=== PATIENT | female | born 1985 | race Caucasian/White ===

== ENCOUNTER 2021-09-28 12:29 | Emergency (ER) | payer MEDICAID ==
[~2021-09-28] VITALS: Ht 157.5 cm; Wt 117.9 kg
--- NOTE | 2021-09-28 12:38 | NUR ---
DR. CARDENAS BEDSIDE EVALUATING PATIENT
[2021-09-28 12:51] VITALS: BP 179/100
--- NOTE | 2021-09-28 12:52 | NUR ---
1248 CODE STROKE INITIATED
--- NOTE | 2021-09-28 12:54 | NUR ---
PATIENT TRANSPORTED TO CT [facility]IA [facility]
--- NOTE | 2021-09-28 12:55 | NUR ---
36 y/o F BIB self from home c/o acute onset of headache 35 minutes prior to arrival. Patient A&Ox4, ambulatory, states symptoms began while at work. Pt also reports 3 episodes of vomiting. Last seen normal 1220PM. Pt reports hx of migraine headaches and states symptoms feel similar. Pt reports blurry vision and slow to respond. Denies chest pain, syncope, dizziness, SOB, falls. Bed locked in lowest position, side rails x 1. PMH/Sx/Meds: lupus, trigeminal neuralgia NKDA
--- NOTE | 2021-09-28 12:56 | NUR ---
Blood sample collected, walked to lab, handed to CPT. Alka
--- NOTE | 2021-09-28 12:59 | NUR ---
NIHSS 5: LOC: +1 Arouses to minor stim Visual drummond: +1 partial hemianopia Left arm motor drift: +1 Left leg motor drift + 1 Limb ataxia: +1
--- NOTE | 2021-09-28 13:02 | NUR ---
TELENEURO CONSULT INITIATED CONNECT ID [id number]
--- NOTE | 2021-09-28 13:03 | NUR ---
Collin nieves in [facility] - 09/28/21 at 1304 by ROMELIA 1302 KAILEY CONSULT INITIATED CONNECT ID [id number]
--- NOTE | 2021-09-28 13:03 | NUR ---
PT TAKEN TO ER BED 5 VIA [facility].
--- NOTE | 2021-09-28 13:05 | NUR ---
Connected to Teleneurologist at this time.
--- NOTE | 2021-09-28 13:14 | NUR ---
CT consent form signed
[2021-09-28] MEDS ORDERED: diphenhydrAMINE 50 MG/ML VIAL IVP ONE (13:15)
[2021-09-28] MEDS ORDERED: PROCHLORPERAZINE 10 MG/2 ML VIAL IVP ONE (13:15)
[2021-09-28] MEDS ORDERED: NACL 0.9% 1,000 ML IV ONE (13:20)
--- NOTE | 2021-09-28 13:23 | NUR ---
Contacted Will advised pt ready pending blood work
--- NOTE | 2021-09-28 13:36 | NUR ---
ZEENAT ortega swab collected, walked to lab and handed to CPT. Alka
[2021-09-28 13:52] LABS: ALBUMIN 3.7 g/dL (3.4-5.0); ANION GAP 14.2 (8-16); CARBON DIOXIDE 27.5 mmol/L (21-32); CREATININE 0.8 mg/dL (0.6-1.3); POTASSIUM 3.7 mmol/L (3.5-5.1); TOTAL BILIRUBIN 0.4 mg/dL (0.0-1.0)
--- NOTE | 2021-09-28 13:56 | NUR ---
ua done hcg neg, pt sent to ct via w/c
--- NOTE | 2021-09-28 14:20 | NUR ---
pt back from ct, c/o headache er md Dr. Anne notifted.
[2021-09-28] MEDS ORDERED: KETOROLAC 15 MG/ML VIAL IVP ONE (15:00)
--- NOTE | 2021-09-28 15:11 | NUR ---
ivp pain meds given-nadr at this time
--- NOTE | 2021-09-28 15:21 | NUR ---
Pt removed IV by accident; Dr. Anne made aware; no new orders for IV insertion at this time.
[2021-09-28 15:39] LABS: BASOPHILS # (AUTO) 0.1 K/uL (0.00-0.22); BASOPHILS % (AUTO) 2.3 % (0.0-2.0); EOSINOPHILS # (AUTO) 0.1 K/uL (0-0.4); EOSINOPHILS % (AUTO) 2.6 % (0.0-4.0); HEMATOCRIT 42.6 % (36-48); HEMOGLOBIN 14.4 g/dL (12.0-16.0); LYMPHOCYTES # (AUTO) 1.1 K/uL (2.5-16.5); LYMPHOCYTES % (AUTO) 19.6 % (20.5-51.1); MEAN CORPUSCULAR HEMOGLOBIN 31 pg (27-31); MEAN CORPUSCULAR HGB CONC 34 g/dL (33-37); MEAN CORPUSCULAR VOLUME 92.2 fL (80-94); MONOCYTES # (AUTO) 0.3 K/uL (0.8-1.0); MONOCYTES % (AUTO) 6.3 % (1.7-9.3); NEUTROPHILS # (AUTO) 3.8 K/uL (1.8-7.7); NEUTROPHILS % (AUTO) 69.2 % (42.2-75.2); PLATELET COUNT (AUTO) 260 K/uL (140-450); RED BLOOD CELL COUNT(AUTO) 4.62 MIL/uL (4.20-5.40); RED CELL DISTRIBUTION WIDTH 13.9 % (11.6-13.7); WHITE BLOOD COUNT (AUTO) 5.5 K/uL (4.8-10.8)
[2021-09-28 15:42] LABS: APPEARANCE,URINE HAZY (CLEAR); BILIRUBIN,URINE 1+ (NEGATIVE); BLOOD, URINE 3+ (NEGATIVE); COLOR,URINE YELLOW (YELLOW); LEUKOCYTE ESTERASE ,URINE 1+ (NEGATIVE); NITRITE, URINE NEGATIVE (NEGATIVE); UGLUCOSE NEGATIVE (NEGATIVE)
[2021-09-28 16:25] LABS: CALCIUM OXALATE CRYSTALS,UR None Seen /HPF (None Seen); COARSE GRANULAR CASTS,URINE None Seen /LPF (None Seen); FINE GRANULAR CASTS,URINE None Seen /LPF (None Seen); HYALINE CASTS, URINE 0-10 /LPF (None Seen); OTHER CASTS, URINE None Seen /LPF (None Seen); OTHER CRYSTALS,URINE None Seen /HPF (None Seen); RED BLOOD CELL CASTS,URINE None Seen /LPF (None Seen); TRICHOMONAS,URINE None Seen /HPF (None Seen); TRIPLE PHOSPHATE CRYSTAL,UR None Seen /HPF (None Seen); URIC ACID CRYSTALS,URINE None Seen /HPF (None Seen); URINE AMORPHOUS URATE None Seen /HPF (None Seen); WAXY CASTS,URINE None Seen /LPF (None Seen); YEAST,URINE None Seen /HPF (None Seen)
--- NOTE | 2021-09-28 16:30 | NUR ---
Dr. Anne is reevaluating pt at bedside
[2021-09-28] MEDS ORDERED: SULF-59 PO (16:41)
--- NOTE | 2021-09-28 16:43 | NUR ---
BP 158/107; Dr. Anne made aware.
[2021-09-28 16:44] VITALS: BP 158/107
--- NOTE | 2021-09-28 16:50 | NUR ---
Patient discharged with v/s stable. Written and verbal after care instructions given and explained. Patient alert, oriented and verbalized understanding of instructions. Ambulatory with steady gait. All questions addressed prior to discharge. ID band removed. Patient advised to follow up with PMD. Rx of Bactrim Bs Tablet given. Patient educated on indication of medication including possible reaction and side effects. Opportunity to ask questions provided and answered.
[2021-09-28 17:37] LABS: PROTHROMBIN TIME 9.5 secs (10.8-13.4)
== END 2021-09-28 16:50 | disposition home or self-care (01) ==
LOC: MED 12:29
DX: R51.9 Headache, unspecified (principal); R11.2 Nausea with vomiting, unspecified; H53.9 Unspecified visual disturbance; Z85.51 Personal history of malignant neoplasm of bladder; Z20.822 Contact with and (suspected) exposure to COVID-19
CPT/HCPCS: 36415; 70450; 70496; 70498; 71045; 80053; 81001; 81025; 84484; 85025; 85610; 85730; 86886; 86900; 86901; 87086; 87426; 93005; 96361; 96374; 96375; 99291; J0780; J1200; J1885; J7030; Q9967

== ENCOUNTER 2021-11-08 08:41 | Outpatient (CLI) | payer OTHER, MEDICAID ==
[~2021-11-08 08:41] MED LIST: SULF-59 PO
[2021-11-08 09:20] LABS: MEAN CORPUSCULAR HEMOGLOBIN 30 pg (27-31); PLATELET COUNT (AUTO) 280 K/uL (140-450)
[2021-11-08 09:24] LABS: APPEARANCE,URINE CLEAR (CLEAR); BASOPHILS % (AUTO) 0.5 % (0.0-2.0); BILIRUBIN,URINE NEGATIVE (NEGATIVE); BLOOD, URINE 3+ (NEGATIVE); COLOR,URINE YELLOW (YELLOW); EOSINOPHILS # (AUTO) 0.2 K/uL (0-0.4); EOSINOPHILS % (AUTO) 2.9 % (0.0-4.0); HEMATOCRIT 42.8 % (36-48); HEMOGLOBIN 14.2 g/dL (12.0-16.0); LEUKOCYTE ESTERASE ,URINE 1+ (NEGATIVE); LYMPHOCYTES # (AUTO) 1.2 K/uL (2.5-16.5); LYMPHOCYTES % (AUTO) 23.4 % (20.5-51.1); MEAN CORPUSCULAR HGB CONC 33 g/dL (33-37); MEAN CORPUSCULAR VOLUME 91.5 fL (80-94); MONOCYTES # (AUTO) 0.3 K/uL (0.8-1.0); MONOCYTES % (AUTO) 5.4 % (1.7-9.3); NEUTROPHILS # (AUTO) 3.5 K/uL (1.8-7.7); NEUTROPHILS % (AUTO) 67.8 % (42.2-75.2); NITRITE, URINE NEGATIVE (NEGATIVE); RED BLOOD CELL COUNT(AUTO) 4.68 MIL/uL (4.20-5.40); RED CELL DISTRIBUTION WIDTH 13.7 % (11.6-13.7); UGLUCOSE NEGATIVE (NEGATIVE); WHITE BLOOD COUNT (AUTO) 5.2 K/uL (4.8-10.8)
[2021-11-08 09:44] LABS: WBC,URINE 0-5 /HPF (0-5)
[2021-11-08 09:46] LABS: CALCIUM OXALATE CRYSTALS,UR None Seen /HPF (None Seen); COARSE GRANULAR CASTS,URINE None Seen /LPF (None Seen); FINE GRANULAR CASTS,URINE None Seen /LPF (None Seen); HYALINE CASTS, URINE None Seen /LPF (None Seen); OTHER CRYSTALS,URINE None Seen /HPF (None Seen); RED BLOOD CELL CASTS,URINE None Seen /LPF (None Seen); TRICHOMONAS,URINE None Seen /HPF (None Seen); TRIPLE PHOSPHATE CRYSTAL,UR None Seen /HPF (None Seen); URIC ACID CRYSTALS,URINE None Seen /HPF (None Seen); URINE AMORPHOUS URATE None Seen /HPF (None Seen); WAXY CASTS,URINE None Seen /LPF (None Seen); YEAST,URINE None Seen /HPF (None Seen)
[2021-11-08 09:47] LABS: OTHER CASTS, URINE None Seen /LPF (None Seen)
[2021-11-08 09:48] LABS: ALBUMIN 3.9 g/dL (3.4-5.0); CARBON DIOXIDE 29.2 mmol/L (21-32); CHOL/HDL RATIO 3.6 (1-4.5); CREATININE 0.9 mg/dL (0.6-1.3); POTASSIUM 4.2 mmol/L (3.5-5.1); THYROID STIMULATING HORMONE 0.94 uIU/mL (0.34-3.74); TOTAL BILIRUBIN 0.3 mg/dL (0.0-1.0)
[2021-11-08 09:49] LABS: BARBITURATE, URINE NEGATIVE ng/ml (NEG <=200); BENZODIAZEPINE, URINE NEGATIVE ng/mL (NEG <=200)
[2021-11-08 09:50] LABS: CANNABINOID, URINE POSITIVE ng/mL (NEG <=50); COCAINE, URINE NEGATIVE ng/mL (NEG <=300); OPIATE, URINE NEGATIVE ng/mL (NEG <=2000); PHENCYCLIDINE SCREEN,URINE NEGATIVE ng/mL (NEG <=25)
== END 2021-11-08 21:48 | disposition home or self-care (01) ==
LOC: MLB 08:41
DX: Z13.220 Encounter for screening for lipoid disorders (principal); Z11.59 Encounter for screening for other viral diseases
CPT/HCPCS: 36415; 80053; 80305; 81001; 82306; 83036; 84443; 85025; 87086

== ENCOUNTER 2022-01-05 09:57 | Day surgery (SDC) | payer OTHER, MEDICAID ==
[~2022-01-05] VITALS: Ht 157.5 cm; Wt 90.7 kg
[2022-01-05] MEDS ORDERED: PROPOFOL 200 MG/20 ML VIAL IV ONE (11:48)
[2022-01-05 11:49] LABS: BASOPHILS % (AUTO) 0.6 % (0.0-2.0); EOSINOPHILS # (AUTO) 0.2 K/uL (0-0.4); EOSINOPHILS % (AUTO) 4.1 % (0.0-4.0); HEMATOCRIT 42.4 % (36-48); HEMOGLOBIN 13.9 g/dL (12.0-16.0); LYMPHOCYTES # (AUTO) 1.5 K/uL (2.5-16.5); LYMPHOCYTES % (AUTO) 32.5 % (20.5-51.1); MEAN CORPUSCULAR HEMOGLOBIN 30 pg (27-31); MEAN CORPUSCULAR HGB CONC 33 g/dL (33-37); MEAN CORPUSCULAR VOLUME 90.2 fL (80-94); MONOCYTES # (AUTO) 0.3 K/uL (0.8-1.0); MONOCYTES % (AUTO) 6.9 % (1.7-9.3); NEUTROPHILS # (AUTO) 2.6 K/uL (1.8-7.7); NEUTROPHILS % (AUTO) 55.9 % (42.2-75.2); PLATELET COUNT (AUTO) 239 K/uL (140-450); RED CELL DISTRIBUTION WIDTH 14.5 % (11.6-13.7); WHITE BLOOD COUNT (AUTO) 4.7 K/uL (4.8-10.8)
[2022-01-05] MEDS ORDERED: fentaNYL citrate 0.05 MG/ML VIAL ONE (11:49)
[2022-01-05 11:56] LABS: ALBUMIN 3.6 g/dL (3.4-5.0); ANION GAP 7.2 (8-16); CARBON DIOXIDE 32.8 mmol/L (21-32); CREATININE 0.9 mg/dL (0.6-1.3); TOTAL BILIRUBIN 0.3 mg/dL (0.0-1.0)
[2022-01-05] MEDS ORDERED: BUPIVACAINE MPF 0.25% 10 ML VIAL INJ ONE ×2 (11:59)
[2022-01-05] MEDS ORDERED: SEVOFLURANE 250 ML BTL INH ONE (12:30)
[2022-01-05] MEDS ORDERED: LIDOCAINE/EPI MPF 1%1:200000 30 ML VIAL INJ ONE (12:34)
[2022-01-05] MEDS ORDERED: ONDANSETRON 4 MG/2 ML VIAL ONE (12:58)
[2022-01-05] MEDS ORDERED: MEPERIDINE 25 MG/ML SYR ONE (13:04)
[2022-01-05] MEDS ORDERED: HYDROmorphone 1 MG/ML AMP IVP PRN (13:30)
[2022-01-05] MEDS ORDERED: ONDANSETRON 4 MG/2 ML VIAL IVP PRN (13:30)
[2022-01-05] MEDS ORDERED: LACTATED RINGERS 1,000 ML IV SCH (13:30)
[2022-01-05] MEDS ORDERED: diphenhydrAMINE 50 MG/ML VIAL IVP PRN (13:30)
[2022-01-05] MEDS ORDERED: MEPERIDINE 25 MG/ML SYR IVP PRN (13:30)
[2022-01-05] MEDS ORDERED: HYDROmorphone 1 MG/ML AMP ONE (14:51)
== END 2022-01-05 15:06 | disposition home or self-care (01) ==
LOC: MDS 09:57 → MMU 10:28 → MDS 15:06
PROVIDERS: ATTEND Obstetrics & Gynecology
DX: N93.9 Abnormal uterine and vaginal bleeding, unspecified (principal); R10.2 Pelvic and perineal pain; Z90.710 Acquired absence of both cervix and uterus; Z20.822 Contact with and (suspected) exposure to COVID-19
CPT/HCPCS: 36415; 57100; 80053; 85025; 86886; 86900; 86901; 87426; J1170; J2001; J2175; J2405; J2704; J3010; J3490; 88304

== ENCOUNTER 2022-01-16 13:42 | Emergency (ER) | payer OTHER, MEDICAID ==
[~2022-01-16] VITALS: Ht 157.5 cm; Wt 101.6 kg
[2022-01-16 13:56] VITALS: BP 127/81
--- NOTE | 2022-01-16 14:02 | NUR ---
PT AMBULATED TO ER BED 2
--- NOTE | 2022-01-16 14:11 | NUR ---
36 Y/O F BIB SELF C/O VAGINAL PAIN 04/30, PT STATED THAT SHE HAD A BIOPSY IN HER CUFF 10 DAYS AGO, DENIES ANY VAGINAL DISCHARGE OR BLEEDING, TOOK OXY 5-325 AT 1300 TODAY WITH MINIMAL EFFECT. FLAVIO PMH: HYSTERECTOMY AT 2017
--- NOTE | 2022-01-16 14:18 | NUR ---
PERSON AT BEDSIDE.
[2022-01-16] MEDS ORDERED: MORPHINE SULFATE 4 MG/ML SYR IVP ONE ×2 (14:20→16:00)
[2022-01-16] MEDS ORDERED: ONDANSETRON 4 MG/2 ML VIAL IVP ONE (14:20)
[2022-01-16] MEDS ORDERED: NACL 0.9% 1,000 ML IV ONE (14:20)
[2022-01-16 15:15] LABS: BASOPHILS % (AUTO) 0.7 % (0.0-2.0); EOSINOPHILS # (AUTO) 0.2 K/uL (0-0.4); EOSINOPHILS % (AUTO) 3.2 % (0.0-4.0); HEMATOCRIT 41.2 % (36-48); HEMOGLOBIN 13.6 g/dL (12.0-16.0); LYMPHOCYTES # (AUTO) 1.5 K/uL (2.5-16.5); LYMPHOCYTES % (AUTO) 32.3 % (20.5-51.1); MEAN CORPUSCULAR HEMOGLOBIN 30 pg (27-31); MEAN CORPUSCULAR HGB CONC 33 g/dL (33-37); MEAN CORPUSCULAR VOLUME 90.4 fL (80-94); MONOCYTES # (AUTO) 0.3 K/uL (0.8-1.0); MONOCYTES % (AUTO) 6.3 % (1.7-9.3); NEUTROPHILS # (AUTO) 2.7 K/uL (1.8-7.7); NEUTROPHILS % (AUTO) 57.5 % (42.2-75.2); PLATELET COUNT (AUTO) 247 K/uL (140-450); RED BLOOD CELL COUNT(AUTO) 4.56 MIL/uL (4.20-5.40); RED CELL DISTRIBUTION WIDTH 14.7 % (11.6-13.7); WHITE BLOOD COUNT (AUTO) 4.8 K/uL (4.8-10.8)
[2022-01-16 15:41] LABS: ALBUMIN 3.7 g/dL (3.4-5.0); ANION GAP 11.6 (8-16); CARBON DIOXIDE 26.6 mmol/L (21-32); CREATININE 0.9 mg/dL (0.6-1.3); POTASSIUM 4.2 mmol/L (3.5-5.1); TOTAL BILIRUBIN 0.3 mg/dL (0.0-1.0)
--- NOTE | 2022-01-16 16:37 | NUR ---
PT TO CT BY BED.
--- NOTE | 2022-01-16 16:55 | NUR ---
PT BACK FROM CT SCAN.
[2022-01-16] MEDS ORDERED: NAPR-54 PO (17:28)
[2022-01-16] MEDS ORDERED: CEPH-588 PO (17:29)
[2022-01-16 17:40] VITALS: BP 132/81
--- NOTE | 2022-01-16 17:41 | NUR ---
Patient discharged with v/s stable. Written and verbal after care instructions given and explained. Patient alert, oriented and verbalized understanding of instructions. Ambulatory with steady gait. All questions addressed prior to discharge. ID band removed. Patient advised to follow up with PMD. Rx of CEPHALEXIN, NAPROXEN given. Patient educated on indication of medication including possible reaction and side effects. Opportunity to ask questions provided and answered.
--- NOTE | 2022-01-16 17:42 | NUR ---
The patient's care was reviewed and supervised by Jenna Cervantes RN.
[2022-01-16 22:19] LABS: BILIRUBIN,URINE NEGATIVE (NEGATIVE); BLOOD, URINE 3+ (NEGATIVE); COLOR,URINE YELLOW (YELLOW); LEUKOCYTE ESTERASE ,URINE TRACE (NEGATIVE); NITRITE, URINE NEGATIVE (NEGATIVE); PH,URINE 6.5 (5.0-9.0); UGLUCOSE NEGATIVE (NEGATIVE)
[2022-01-16 22:20] LABS: APPEARANCE,URINE CLOUDY (CLEAR)
[2022-01-16 22:57] LABS: RBC,URINE 0-5 /HPF (0-5)
== END 2022-01-16 17:41 | disposition home or self-care (01) ==
LOC: MED 13:42
DX: R10.9 Unspecified abdominal pain (principal); Z79.899 Other long term (current) drug therapy; Z90.710 Acquired absence of both cervix and uterus; Z85.42 Personal history of malignant neoplasm of other parts of uterus
CPT/HCPCS: 36415; 74177; 80053; 81001; 84702; 85025; 87086; 96361; 96374; 96375; 99285; J2270; J2405; J7030; Q9967

== ENCOUNTER 2022-02-13 10:03 | Day surgery (SDC) | payer OTHER, MEDICAID ==
[~2022-02-13] VITALS: Ht 157.5 cm; Wt 104.3 kg
[~2022-02-13 10:03] MED LIST changes: +CEPH-588 PO; +NAPR-54 PO; -SULF-59 PO
[2022-02-13] MEDS ORDERED: ceFAZolin Sod. 2,000 MG in DEXTROSE 5% 100 ML IV ONE (11:00)
[2022-02-13 11:04] LABS: BASOPHILS % (AUTO) 0.5 % (0.0-2.0); EOSINOPHILS # (AUTO) 0.1 K/uL (0-0.4); EOSINOPHILS % (AUTO) 2.7 % (0.0-4.0); HEMATOCRIT 43.7 % (36-48); HEMOGLOBIN 14.5 g/dL (12.0-16.0); LYMPHOCYTES # (AUTO) 1.3 K/uL (2.5-16.5); LYMPHOCYTES % (AUTO) 34.1 % (20.5-51.1); MEAN CORPUSCULAR HEMOGLOBIN 30 pg (27-31); MEAN CORPUSCULAR HGB CONC 33 g/dL (33-37); MEAN CORPUSCULAR VOLUME 89.7 fL (80-94); MONOCYTES # (AUTO) 0.2 K/uL (0.8-1.0); MONOCYTES % (AUTO) 5.4 % (1.7-9.3); NEUTROPHILS # (AUTO) 2.2 K/uL (1.8-7.7); NEUTROPHILS % (AUTO) 57.3 % (42.2-75.2); PLATELET COUNT (AUTO) 264 K/uL (140-450); RED BLOOD CELL COUNT(AUTO) 4.86 MIL/uL (4.20-5.40); WHITE BLOOD COUNT (AUTO) 3.9 K/uL (4.8-10.8)
[2022-02-13 11:13] LABS: ALBUMIN 3.9 g/dL (3.4-5.0); ANION GAP 10.4 (8-16); CARBON DIOXIDE 30.9 mmol/L (21-32); CREATININE 0.8 mg/dL (0.6-1.3); POTASSIUM 4.3 mmol/L (3.5-5.1); TOTAL BILIRUBIN 0.4 mg/dL (0.0-1.0)
[2022-02-13] MEDS ORDERED: BUPIVACAINE-MPF/EPI 0.25% 10 ML VIAL INJ ONE (12:35)
[2022-02-13] MEDS ORDERED: SEVOFLURANE 250 ML BTL INH ONE (12:54)
[2022-02-13] MEDS ORDERED: MIDAZOLAM 2 MG/2 ML VIAL ONE (12:54)
[2022-02-13] MEDS ORDERED: KETOROLAC 30 MG/ML VIAL IVP ONE (13:10)
[2022-02-13] MEDS ORDERED: fentaNYL citrate 0.05 MG/ML VIAL ONE (13:24)
[2022-02-13] MEDS ORDERED: KETOROLAC 30 MG/ML VIAL ONE (13:56)
[2022-02-13] MEDS ORDERED: PHENYLEPHRINE 10 MG/ML VIAL ONE (13:56)
[2022-02-13] MEDS ORDERED: PROPOFOL 200 MG/20 ML VIAL IV ONE ×2 (13:57)
[2022-02-13] MEDS ORDERED: SUCCINYLCHOLINE CHLORIDE 200 MG/10 ML VIAL IVP ONE (13:58)
[2022-02-13] MEDS ORDERED: ONDANSETRON 4 MG/2 ML VIAL ONE ×2 (13:59→15:21)
[2022-02-13] MEDS: HYDROmorphone 1 MG/ML AMP IVP PRN ×4 (14:25→14:55)
[2022-02-13] MEDS ORDERED: HYDROmorphone PFS 2 MG/ML SYR ONE (14:25)
[2022-02-13] MEDS ORDERED: METOCLOPRAMIDE 10 MG/2 ML INJ VIAL IVP PRN (14:27)
[2022-02-13] MEDS ORDERED: LABETALOL 20 MG/4 ML VIAL IVP PRN (14:27)
[2022-02-13] MEDS ORDERED: hydrALAZINE 20 MG/ML VIAL IVP PRN (14:28)
[2022-02-13] MEDS ORDERED: NACL 0.9% 1,000 ML IV SCH (14:30)
[2022-02-13] MEDS ORDERED: ONDANSETRON 4 MG/2 ML VIAL IVP STA (15:19)
[2022-02-13] MEDS ORDERED: MORPHINE SULFATE 10 MG/ML VIAL ONE (15:22)
[2022-02-13] MEDS ORDERED: MORPHINE SULFATE 10 MG/ML VIAL IVP STA (15:23)
[2022-02-13] MEDS ORDERED: MORPHINE SULFATE 10 MG/ML SYR IVP ONE (15:27)
[2022-02-13] MEDS ORDERED: ONDANSETRON 4 MG/2 ML VIAL IVP ONE (15:28)
== END 2022-02-13 16:05 | disposition home or self-care (01) ==
LOC: MOR 10:03 → MMU 10:04 → MOR 16:05
PROVIDERS: ATTEND Obstetrics & Gynecology
DX: N80.9 Endometriosis, unspecified (principal); G47.33 Obstructive sleep apnea (adult) (pediatric); I10 Essential (primary) hypertension; Z90.722 Acquired absence of ovaries, bilateral; E66.01 Morbid (severe) obesity due to excess calories; Z68.41 Body mass index [BMI] 40.0-44.9, adult; Z79.899 Other long term (current) drug therapy; Z90.710 Acquired absence of both cervix and uterus; Z20.822 Contact with and (suspected) exposure to COVID-19
CPT/HCPCS: 36415; 58662; 80053; 85025; 86886; 86900; 86901; 87426; J0330; J1170; J1885; J2250; J2270; J2370; J2405; J2704; J2765; J3010; J3490; J7060

== ENCOUNTER 2022-04-04 11:59 | Emergency (ER) | payer OTHER ==
[~2022-04-04] VITALS: Ht 157.5 cm; Wt 116.6 kg
[2022-04-04 12:11] VITALS: BP 151/101
--- NOTE | 2022-04-04 12:25 | NUR ---
Patient ambulated to bed 2.
--- NOTE | 2022-04-04 12:35 | NUR ---
PA Acosta evaluating patient at bedside
[2022-04-04] MEDS ORDERED: predniSONE 20 MG TAB PO ONE (12:45)
[2022-04-04] MEDS ORDERED: FAMOTIDINE 20 MG TAB PO ONE (12:45)
[2022-04-04] MEDS ORDERED: IBUPROFEN 800 MG TAB PO ONE (12:45)
[2022-04-04] MEDS ORDERED: BEN50 PO (13:47)
[2022-04-04] MEDS ORDERED: ACET-8386 PO (13:47)
[2022-04-04] MEDS ORDERED: PRED20TA5 PO (13:47)
[2022-04-04] MEDS ORDERED: HYDR28CR38 TP (13:47)
[2022-04-04 14:05] VITALS: BP 160/101
--- NOTE | 2022-04-04 14:05 | NUR ---
Patient discharged with v/s stable. Written and verbal after care instructions given. Patient alert, oriented and verbalized understanding of instructions. Ambulatory with steady gait. All questions addressed prior to discharge. ID band removed. Patient advised to follow up with PMD. Rx of Deltasone, Cortizone, Benadryl and Hydrocodone-Acetaminophen given. Opportunity to ask questions provided and answered.
--- NOTE | 2022-04-04 14:06 | NUR ---
Chart checked and completed. The patient's care was reviewed and supervised by Xiomara Bedolla RN.
== END 2022-04-04 14:05 | disposition home or self-care (01) ==
LOC: MED 11:59
DX: T63.441A Toxic effect of venom of bees, accidental (unintentional), initial encounter (principal); L25.9 Unspecified contact dermatitis, unspecified cause; R19.7 Diarrhea, unspecified; Z85.42 Personal history of malignant neoplasm of other parts of uterus; Z79.899 Other long term (current) drug therapy; Z79.891 Long term (current) use of opiate analgesic; Y92.89 Other specified places as the place of occurrence of the external cause
CPT/HCPCS: 99284; J7512

== ENCOUNTER 2022-05-09 15:33 | Emergency (ER) | payer OTHER, MEDICAID ==
[~2022-05-09] VITALS: Ht 157.5 cm; Wt 113.4 kg
[~2022-05-09 15:33] MED LIST changes: +ACET-8386 PO; +BEN50 PO; -CEPH-588 PO; +HYDR28CR38 TP; -NAPR-54 PO; +PRED20TA5 PO
[2022-05-09 15:47] VITALS: BP 126/76
--- NOTE | 2022-05-09 16:20 | NUR ---
37/F WALKED IN C/O RLQ PAIN ONSET 4 DAYS. DENIES BLOOD IN STOOL. AFEBRILE. AAO4, AMBULATORY, BLOOD AND URINE COLLECTED. PMH: UTERINE CA, LUPUS
[2022-05-09] MEDS ORDERED: MORPHINE SULFATE 4 MG/ML SYR IVP ONE ×2 (16:25→17:05)
[2022-05-09] MEDS ORDERED: ONDANSETRON 4 MG/2 ML VIAL IVP ONE (16:25)
[2022-05-09] MEDS ORDERED: NACL 0.9% 1,000 ML IV SCH (16:25)
[2022-05-09 16:40] LABS: BASOPHILS % (AUTO) 0.8 % (0.0-2.0); EOSINOPHILS # (AUTO) 0.1 K/uL (0-0.4); EOSINOPHILS % (AUTO) 2.7 % (0.0-4.0); HEMATOCRIT 40.5 % (36-48); HEMOGLOBIN 13.7 g/dL (12.0-16.0); LYMPHOCYTES # (AUTO) 1.2 K/uL (2.5-16.5); LYMPHOCYTES % (AUTO) 27.5 % (20.5-51.1); MEAN CORPUSCULAR HEMOGLOBIN 31 pg (27-31); MEAN CORPUSCULAR HGB CONC 34 g/dL (33-37); MEAN CORPUSCULAR VOLUME 91.2 fL (80-94); MONOCYTES # (AUTO) 0.3 K/uL (0.8-1.0); MONOCYTES % (AUTO) 6.5 % (1.7-9.3); NEUTROPHILS # (AUTO) 2.7 K/uL (1.8-7.7); NEUTROPHILS % (AUTO) 62.5 % (42.2-75.2); PLATELET COUNT (AUTO) 217 K/uL (140-450); RED BLOOD CELL COUNT(AUTO) 4.43 MIL/uL (4.20-5.40); RED CELL DISTRIBUTION WIDTH 13.9 % (11.6-13.7); WHITE BLOOD COUNT (AUTO) 4.4 K/uL (4.8-10.8)
[2022-05-09 16:43] LABS: APPEARANCE,URINE SL CLOUDY (CLEAR); BILIRUBIN,URINE NEGATIVE (NEGATIVE); BLOOD, URINE 2+ (NEGATIVE); COLOR,URINE YELLOW (YELLOW); LEUKOCYTE ESTERASE ,URINE NEGATIVE (NEGATIVE); NITRITE, URINE POSITIVE (NEGATIVE); UGLUCOSE NEGATIVE (NEGATIVE)
--- NOTE | 2022-05-09 16:46 | NUR ---
IV ESTABLISHED TO RIGHT AC 20G.
--- NOTE | 2022-05-09 16:56 | NUR ---
PT WENT TO CT
[2022-05-09 16:58] LABS: ALBUMIN 3.5 g/dL (3.4-5.0); ANION GAP 11.4 (8-16); CARBON DIOXIDE 30.5 mmol/L (21-32); POTASSIUM 3.9 mmol/L (3.5-5.1); TOTAL BILIRUBIN 0.4 mg/dL (0.0-1.0)
--- NOTE | 2022-05-09 17:00 | NUR ---
PT BACK FROM CT
[2022-05-09 17:04] LABS: WBC,URINE 0-5 /HPF (0-5)
[2022-05-09 17:05] LABS: OTHER CASTS, URINE None Seen /LPF (None Seen)
--- NOTE | 2022-05-09 17:06 | NUR ---
PT C/O 04/30 PAIN. ERMD AWARE
[2022-05-09] MEDS ORDERED: ONDA8TAB87 PO (17:50)
[2022-05-09] MEDS ORDERED: ACET-8386 PO (17:50)
[2022-05-09] MEDS ORDERED: CIPR500T4 PO (17:50)
[2022-05-09] MEDS ORDERED: IBUP-2213 PO (17:50)
[2022-05-09 18:04] VITALS: BP 136/75
--- NOTE | 2022-05-09 18:04 | NUR ---
Patient discharged with v/s stable. Written and verbal after care instructions given and explained. Patient alert, oriented and verbalized understanding of instructions. Ambulatory with steady gait. All questions addressed prior to discharge. ID band removed. Patient advised to follow up with PMD. Patient educated on indication of medication including possible reaction and side effects. Opportunity to ask questions provided and answered.
== END 2022-05-09 18:04 | disposition home or self-care (01) ==
LOC: MED 15:33
DX: N39.0 Urinary tract infection, site not specified (principal); Z85.59 Personal history of malignant neoplasm of other urinary tract organ; Z90.710 Acquired absence of both cervix and uterus
CPT/HCPCS: 36415; 74176; 80053; 81001; 81025; 83690; 85025; 96374; 96375; 99284; J2270; J2405; J7030

== ENCOUNTER 2022-05-14 15:23 | Emergency (ER) | payer OTHER, MEDICAID ==
[~2022-05-14] VITALS: Ht 157.5 cm; Wt 117.9 kg
[~2022-05-14 15:23] MED LIST changes: +CIPR500T4 PO; +IBUP-2213 PO; +ONDA8TAB87 PO
[2022-05-14 15:46] VITALS: BP 118/90
--- NOTE | 2022-05-14 16:15 | NUR ---
PATIENT PRESENTS TO THE ED, ALERT AND ORIENTED X 4, NO S/S OF ACUTE DISTRESS, WITH COMPLAINTS OF LOWER ABDOMINAL PAIN X 3 DAYS. PATIENT WITH PMH OF UTERINE CA, HYSTERECTOMY. PATIENT REPORTS NAUSEA/VOMITING X 3 DAYS. SKINS ARE INTACT, LUNG SOUNDS ARE CLEAR.
[2022-05-14] MEDS ORDERED: ONDANSETRON 4 MG/2 ML VIAL IVP ONE (17:35)
[2022-05-14] MEDS ORDERED: NACL 0.9% 1,000 ML IV SCH (17:35)
[2022-05-14] MEDS ORDERED: KETOROLAC 15 MG/ML VIAL IVP ONE (17:35)
[2022-05-14] MEDS ORDERED: MORPHINE SULFATE 4 MG/ML SYR IVP ONE (17:35)
[2022-05-14 17:47] LABS: APPEARANCE,URINE CLEAR (CLEAR); BILIRUBIN,URINE NEGATIVE (NEGATIVE); BLOOD, URINE 3+ (NEGATIVE); COLOR,URINE YELLOW (YELLOW); LEUKOCYTE ESTERASE ,URINE NEGATIVE (NEGATIVE); NITRITE, URINE NEGATIVE (NEGATIVE); UGLUCOSE NEGATIVE (NEGATIVE)
[2022-05-14 17:59] LABS: BASOPHILS % (AUTO) 0.8 % (0.0-2.0); EOSINOPHILS # (AUTO) 0.1 K/uL (0-0.4); HEMATOCRIT 43.5 % (36-48); HEMOGLOBIN 14.6 g/dL (12.0-16.0); LYMPHOCYTES # (AUTO) 1.5 K/uL (2.5-16.5); LYMPHOCYTES % (AUTO) 30.7 % (20.5-51.1); MEAN CORPUSCULAR HEMOGLOBIN 31 pg (27-31); MEAN CORPUSCULAR HGB CONC 34 g/dL (33-37); MEAN CORPUSCULAR VOLUME 91.2 fL (80-94); MONOCYTES # (AUTO) 0.3 K/uL (0.8-1.0); MONOCYTES % (AUTO) 5.9 % (1.7-9.3); NEUTROPHILS # (AUTO) 2.9 K/uL (1.8-7.7); NEUTROPHILS % (AUTO) 59.6 % (42.2-75.2); PLATELET COUNT (AUTO) 234 K/uL (140-450); RED BLOOD CELL COUNT(AUTO) 4.77 MIL/uL (4.20-5.40); RED CELL DISTRIBUTION WIDTH 14.1 % (11.6-13.7); WHITE BLOOD COUNT (AUTO) 4.8 K/uL (4.8-10.8)
[2022-05-14 18:19] LABS: ALBUMIN 3.8 g/dL (3.4-5.0); ANION GAP 14.7 (8-16); CARBON DIOXIDE 27.3 mmol/L (21-32); CREATININE 0.9 mg/dL (0.6-1.3); TOTAL BILIRUBIN 0.4 mg/dL (0.0-1.0)
[2022-05-14 18:28] LABS: RBC,URINE 0-5 /HPF (0-5)
[2022-05-14 18:29] LABS: WBC,URINE 0-5 /HPF (0-5)
--- NOTE | 2022-05-14 19:20 | NUR ---
REPORT GIVEN TO ADAM NICE FOR CONTINUITY OF CARE
--- NOTE | 2022-05-14 19:25 | NUR ---
PT IN CT
[2022-05-14] MEDS ORDERED: POLY17PD72 PO (20:30)
[2022-05-14 20:38] VITALS: BP 115/73
--- NOTE | 2022-05-14 20:38 | NUR ---
Patient discharged with v/s stable. Written and verbal after care instructions given and explained. Patient alert, oriented and verbalized understanding of instructions. Ambulatory with steady gait. All questions addressed prior to discharge. ID band removed. Patient advised to follow up with PMD. Rx of CLEARLAX given. Patient educated on indication of medication including possible reaction and side effects. Opportunity to ask questions provided and answered.
== END 2022-05-14 20:38 | disposition home or self-care (01) ==
LOC: MED 15:23
DX: N30.00 Acute cystitis without hematuria (principal); F41.9 Anxiety disorder, unspecified; Z85.42 Personal history of malignant neoplasm of other parts of uterus; Z90.710 Acquired absence of both cervix and uterus
CPT/HCPCS: 36415; 74177; 80053; 81001; 81025; 83690; 85025; 87086; 96361; 96374; 96375; 99285; J1885; J2270; J2405; J7030; Q9967

== ENCOUNTER 2022-05-28 16:35 | Emergency (ER) | payer OTHER, MEDICAID ==
[~2022-05-28] VITALS: Ht 157.5 cm; Wt 117.5 kg
[~2022-05-28 16:35] MED LIST changes: +POLY17PD72 PO
[2022-05-28 17:06] VITALS: BP 141/72
--- NOTE | 2022-05-28 17:10 | NUR ---
Assisted pt to ambulate to bed 03. Given urine cup for specimen sample. RN made aware.
--- NOTE | 2022-05-28 17:12 | NUR ---
PT RECEIVED, CARE ASSUMED. PT PRESENTS SELF TO ER FOR "UTI SYMPTOMS" DYSURIA, FREQUENT URINATION, FOUL SMELLING URINE. PT IN ROOM AWAITING TO BE SEEN BY
[2022-05-28] MEDS ORDERED: NACL 0.9% 1,000 ML IV SCH (18:35)
[2022-05-28] MEDS ORDERED: LEVOFLOXACIN 500 MG/D5W PREMIX 100 ML IV ONE (18:35)
--- NOTE | 2022-05-28 18:42 | NUR ---
INSERTED 22G IV TO LEFT HAND. PT VERY ANXIOUS.
[2022-05-28 18:43] LABS: APPEARANCE,URINE SL CLOUDY (CLEAR); BILIRUBIN,URINE NEGATIVE (NEGATIVE); BLOOD, URINE 3+ (NEGATIVE); COLOR,URINE AMBER (YELLOW); LEUKOCYTE ESTERASE ,URINE NEGATIVE (NEGATIVE); NITRITE, URINE NEGATIVE (NEGATIVE); PH,URINE 6.5 (5.0-9.0); UGLUCOSE NEGATIVE (NEGATIVE)
[2022-05-28 18:50] LABS: OTHER CASTS, URINE None Seen /LPF (None Seen); RBC,URINE 11-20 (MOD) /HPF (0-5)
[2022-05-28 19:07] LABS: BASOPHILS % (AUTO) 0.6 % (0.0-2.0); EOSINOPHILS # (AUTO) 0.2 K/uL (0-0.4); EOSINOPHILS % (AUTO) 3.3 % (0.0-4.0); HEMATOCRIT 41.8 % (36-48); HEMOGLOBIN 13.7 g/dL (12.0-16.0); LYMPHOCYTES # (AUTO) 1.8 K/uL (2.5-16.5); LYMPHOCYTES % (AUTO) 37.1 % (20.5-51.1); MEAN CORPUSCULAR HEMOGLOBIN 30 pg (27-31); MEAN CORPUSCULAR HGB CONC 33 g/dL (33-37); MEAN CORPUSCULAR VOLUME 92.5 fL (80-94); MONOCYTES # (AUTO) 0.3 K/uL (0.8-1.0); MONOCYTES % (AUTO) 6.9 % (1.7-9.3); NEUTROPHILS # (AUTO) 2.6 K/uL (1.8-7.7); NEUTROPHILS % (AUTO) 52.1 % (42.2-75.2); PLATELET COUNT (AUTO) 235 K/uL (140-450); RED BLOOD CELL COUNT(AUTO) 4.51 MIL/uL (4.20-5.40); RED CELL DISTRIBUTION WIDTH 13.7 % (11.6-13.7); WHITE BLOOD COUNT (AUTO) 4.9 K/uL (4.8-10.8)
[2022-05-28 19:36] LABS: ALBUMIN 3.3 g/dL (3.4-5.0); ANION GAP 13.3 (8-16); CARBON DIOXIDE 28.1 mmol/L (21-32); CREATININE 0.9 mg/dL (0.6-1.3); POTASSIUM 4.4 mmol/L (3.5-5.1); TOTAL BILIRUBIN 0.2 mg/dL (0.0-1.0)
--- NOTE | 2022-05-28 19:50 | NUR ---
PT TRANSPORTED TO BED 12
[2022-05-28] MEDS ORDERED: MORPHINE SULFATE 4 MG/ML SYR IVP ONE (20:00)
[2022-05-28] MEDS ORDERED: LISI40TA8 PO (20:03)
--- NOTE | 2022-05-28 20:19 | NUR ---
PT RETURN FROM CT
[2022-05-28] MEDS ORDERED: fentaNYL citrate 0.05 MG/ML VIAL IVP ONE (21:20)
[2022-05-28] MEDS ORDERED: diphenhydrAMINE 50 MG/ML VIAL IVP ONE (21:20)
[2022-05-28] MEDS ORDERED: ACET-8386 PO (21:41)
[2022-05-28] MEDS ORDERED: ONDA8TAB87 PO (21:41)
[2022-05-28] MEDS ORDERED: LEVO-481 PO (21:41)
[2022-05-28 21:55] VITALS: BP 142/74
--- NOTE | 2022-05-28 21:55 | NUR ---
Patient discharged with v/s stable. Written and verbal after care instructions given and explained. Patient alert, oriented and verbalized understanding of instructions. Ambulatory with steady gait. All questions addressed prior to discharge. ID band removed. Patient advised to follow up with PMD. Rx of NORCO, LEVOFLOXACIN AND ZOFRAN given. Patient educated on indication of medication including possible reaction and side effects. Opportunity to ask questions provided and answered.
--- NOTE | 2022-05-29 19:13 | NUR ---
LATE ENTRY-IVPB-
== END 2022-05-28 21:55 | disposition home or self-care (01) ==
LOC: MED 16:35
DX: N39.0 Urinary tract infection, site not specified (principal); Z20.822 Contact with and (suspected) exposure to COVID-19; R11.2 Nausea with vomiting, unspecified; Z85.42 Personal history of malignant neoplasm of other parts of uterus; Z90.710 Acquired absence of both cervix and uterus; Z79.899 Other long term (current) drug therapy
CPT/HCPCS: 36415; 71045; 74176; 80053; 81001; 81025; 83605; 85025; 87040; 87086; 87426; 93005; 96365; 96375; 99285; J1200; J1956; J2270; J3010; J7030

== ENCOUNTER 2022-06-30 09:56 | Outpatient (CLI) | payer OTHER, MEDICAID ==
[~2022-06-30 09:56] MED LIST changes: -ACET-8386 PO; +ACET-8905 PO; -BEN50 PO; -CIPR500T4 PO; +LEVO-481 PO; +LISI40TA8 PO
[2022-06-30 10:50] LABS: BASOPHILS % (AUTO) 0.7 % (0.0-2.0); EOSINOPHILS # (AUTO) 0.2 K/uL (0-0.4); EOSINOPHILS % (AUTO) 3.6 % (0.0-4.0); HEMATOCRIT 43.7 % (36-48); HEMOGLOBIN 14.4 g/dL (12.0-16.0); LYMPHOCYTES # (AUTO) 1.4 K/uL (2.5-16.5); LYMPHOCYTES % (AUTO) 27.6 % (20.5-51.1); MEAN CORPUSCULAR HEMOGLOBIN 30 pg (27-31); MEAN CORPUSCULAR HGB CONC 33 g/dL (33-37); MEAN CORPUSCULAR VOLUME 91.6 fL (80-94); MONOCYTES # (AUTO) 0.4 K/uL (0.8-1.0); MONOCYTES % (AUTO) 7.6 % (1.7-9.3); NEUTROPHILS # (AUTO) 3.1 K/uL (1.8-7.7); NEUTROPHILS % (AUTO) 60.5 % (42.2-75.2); PLATELET COUNT (AUTO) 251 K/uL (140-450); RED BLOOD CELL COUNT(AUTO) 4.77 MIL/uL (4.20-5.40); RED CELL DISTRIBUTION WIDTH 14.2 % (11.6-13.7); WHITE BLOOD COUNT (AUTO) 5.1 K/uL (4.8-10.8)
[2022-06-30 10:57] LABS: APPEARANCE,URINE SL CLOUDY (CLEAR); BILIRUBIN,URINE NEGATIVE (NEGATIVE); BLOOD, URINE 3+ (NEGATIVE); COLOR,URINE AMBER (YELLOW); LEUKOCYTE ESTERASE ,URINE NEGATIVE (NEGATIVE); NITRITE, URINE POSITIVE (NEGATIVE); UGLUCOSE NEGATIVE (NEGATIVE)
[2022-06-30 11:07] LABS: BARBITURATE, URINE NEGATIVE ng/ml (NEG <=200); BENZODIAZEPINE, URINE NEGATIVE ng/mL (NEG <=200); CANNABINOID, URINE POSITIVE ng/mL (NEG <=50); COCAINE, URINE NEGATIVE ng/mL (NEG <=300); OPIATE, URINE NEGATIVE ng/mL (NEG <=2000); PHENCYCLIDINE SCREEN,URINE NEGATIVE ng/mL (NEG <=25)
[2022-06-30 11:12] LABS: OTHER CASTS, URINE None Seen /LPF (None Seen); RBC,URINE 11-20 (MOD) /HPF (0-5)
[2022-06-30 11:16] LABS: ALBUMIN 3.7 g/dL (3.4-5.0); ANION GAP 9.8 (8-16); CARBON DIOXIDE 32.3 mmol/L (21-32); CREATININE 0.9 mg/dL (0.6-1.3); POTASSIUM 4.1 mmol/L (3.5-5.1); THYROID STIMULATING HORMONE 0.94 uIU/mL (0.34-3.74); TOTAL BILIRUBIN 0.3 mg/dL (0.0-1.0)
[2022-06-30 12:00] LABS: CHOL/HDL RATIO 3.4 (1-4.5)
== END 2022-06-30 19:31 | disposition home or self-care (01) ==
LOC: MLB 09:56
DX: Z00.00 Encounter for general adult medical examination without abnormal findings (principal); Z13.1 Encounter for screening for diabetes mellitus; Z13.9 Encounter for screening, unspecified; I10 Essential (primary) hypertension; E55.9 Vitamin D deficiency, unspecified; Z79.899 Other long term (current) drug therapy
CPT/HCPCS: 36415; 80053; 80305; 81001; 82306; 83036; 84443; 85025; 87086